=== PATIENT | female | born 1975 | race African-American/Black ===

== ENCOUNTER 2018-02-26 10:21 | Emergency (ER) | payer SELFPAY ==
--- NOTE | 2018-02-26 10:36 | ER Document Report ---
ED Medical Screen (RME) - General Chief Complaint: Vaginal Bleeding Stated Complaint: ABDOMINAL PAIN/VAGINAL BLEEDING Time Seen by Provider: 02/26/18 10:28 Notes: 42 years old female presents today with vagina bleeding since this morning. Change had soaked with blood. She had similar spotting about a week ago. Her last menstrual cycle was the third of this month, prior to this she was having regular menstrual cycle. This bleeding is abdomen therefore present to the ED. She also complained of diffuse lower abdominal discomfort/pain. No family history of early menopause. Her mother had a menopause at 55 so with her aunts. Denies any dizziness denies any fever chills dysuria frequency urgency. She was diagnosed with abnormal Pap smear 3 years ago. TRAVEL OUTSIDE OF THE [place] IN LAST 30 DAYS: No - Related Data Allergies/Adverse Reactions: No Known Allergies Allergy (Verified 09/07/15 08:44) Past Medical History - Past Medical History Cardiac Medical History: Denies: Hx Coronary Artery Disease, Hx Heart Attack, Hx Hypertension Pulmonary Medical History: Reports: Hx Asthma Denies: Hx Bronchitis, Hx COPD, Hx Pneumonia Neurological Medical History: Reports: Hx Migraine. Denies: Hx Cerebrovascular Accident, Hx Seizures Musculoskeltal Medical History: Denies Hx Arthritis Past Surgical History: Reports: Hx Abdominal Surgery - Double hernia repair, Hx Section - x2, Hx Herniorrhaphy, Hx Tonsillectomy. Denies: Hx Hysterectomy - Immunizations Hx Diphtheria, Pertussis, Tetanus Vaccination: Yes
--- NOTE | 2018-02-26 10:47 | ER Document Report ---
ED GI/ - General Chief Complaint: Vaginal Bleeding Stated Complaint: ABDOMINAL PAIN/VAGINAL BLEEDING Time Seen by Provider: 02/26/18 10:28 Mode of Arrival: Ambulatory Information source: Patient Notes: 42-year-old female complaining of suprapubic abdominal pain in midcycle vaginal bleeding. She has been having some bleeding after intercourse for a year. She had an abnormal Pap smear 3 years ago and she was due for recheck this year. She is a history of bacterial vaginosis, tubal ligation, tonsillectomy, 2 C- sections, 2 cervical cerclage is, double inguinal hernia repair. Denies dysuria. No fever or chills. No flank pain. No vaginal discharge with an odor. PCP is [facility]. TRAVEL OUTSIDE OF THE [place] IN LAST 30 DAYS: No - Related Data Allergies/Adverse Reactions: No Known Allergies Allergy (Verified 09/07/15 08:44) Past Medical History - General Information source: Patient Last Menstrual Period: 02/10/18 - Social History Smoking Status: Never Smoker Lives with: Family Family History: Reviewed & Not Pertinent Patient has suicidal ideation: No Patient has homicidal ideation: No Pulmonary Medical History: Reports: Hx Asthma Neurological Medical History: Reports: Hx Migraine Musculoskeletal Medical History: Denies Hx Arthritis Past Surgical History: Reports: Hx Abdominal Surgery - Double hernia repair, Hx Section - x2, Hx Herniorrhaphy, Hx Tonsillectomy, Hx Tubal Ligation. Denies: Hx Hysterectomy - Immunizations Hx Diphtheria, Pertussis, Tetanus Vaccination: Yes Review of Systems - Review of Systems Constitutional: No symptoms reported EENT: No symptoms reported Cardiovascular: No symptoms reported Respiratory: No symptoms reported Gastrointestinal: No symptoms reported Genitourinary: No symptoms reported Female Genitourinary: See HPI Musculoskeletal: No symptoms reported Skin: No symptoms reported Hematologic/Lymphatic: No symptoms reported Neurological/Psychological: No symptoms reported Physical Exam - Vital signs Vitals: Temp Pulse Resp BP Pulse Ox 98.7 F 81 16 105/75 98 02/26/18 10:32 02/26/18 10:32 02/26/18 10:32 02/26/18 10:32 02/26/18 10:32 Interpretation: Normal - General General appearance: Appears well, Alert - HEENT Head: Normocephalic, Atraumatic Eyes: Normal Pupils: PERRL Neck: Supple - Respiratory Respiratory status: No respiratory distress Chest status: Nontender Breath sounds: Normal Chest palpation: Normal - Cardiovascular Rhythm: Regular Heart sounds: Normal auscultation Murmur: No - Abdominal Inspection: Normal Distension: No distension Bowel sounds: Normal Tenderness: Nontender. No: Tender Organomegaly: No organomegaly - Genitourinary External exam: Normal Speculum exam: Cervix closed, Lesions - see other, Other - scant mount old blood , some eyrthema at 8 oclock but not vasculr, also some erythema at 9 oclock not vascular or bleeding.. No: Vaginal discharge Bimanuel exam: No: Cervical motion tender, Adnexal tenderness - Back Back: Normal, Nontender. No: CVA tenderness - Extremities General upper extremity: Normal inspection, Nontender, Normal color, Normal ROM , Normal temperature General lower extremity: Normal inspection, Nontender, Normal color, Normal ROM , Normal temperature, Normal weight bearing. No: Yayo's sign - Neurological Neuro grossly intact: Yes Cognition: Normal Orientation: AAOx4 Delta Coma Scale Eye Opening: Spontaneous Delta Coma Scale Verbal: Oriented Pallavi Coma Scale Motor: Obeys Commands Pallavi Coma Scale Total: 15 Speech: Normal Motor strength normal: LUE, RUE, LLE, RLE Sensory: Normal - Psychological Associated symptoms: Normal affect, Normal mood - Skin Skin Temperature: Warm Skin Moisture: Dry Skin Color: Normal Skin irregularity: negative: Rash Course - Re-evaluation Re-evalutation: 02/26/18 11:48 test is negative, urinalysis is negative, wet prep is negative for BV or Trichomonas, CBC is normal, the gonorrhea and Chlamydia are pending I will have her call me back for those. I also recommended highly that she make an appointment with [facility] for a Pap smear ROSENDO since past abnormal pap smear 3 years ago. 02/26/18 11:50 02/26/18 11:51 - Vital Signs Vital signs: Temp Pulse Resp BP Pulse Ox 98.7 F 81 16 105/75 98 02/26/18 10:32 02/26/18 10:32 02/26/18 10:32 02/26/18 10:32 02/26/18 10:32 - Laboratory Result Diagrams: 02/26/18 10:49 Laboratory results interpreted by me: 02/26/18 10:49 RDW 14.5 H Discharge - Discharge Clinical Impression: midcycle bleeding, Hx of abnormal cervical Pap smear, Pelvic pain Condition: Good Disposition: HOME, SELF-CARE Instructions: [facility] [place], Pelvic Pain ([facility]), Vaginal Bleeding ([facility]), [facility] ([facility]) Additional Instructions: Call [facility] today and for next week for your Pap smear Call me in 3 hours for the gonorrhea and Chlamydia test at [phone] Return to the emergency room for any worsening of the symptoms Copy of the lab were given to you Forms: Return to Work Referrals: NOÉ HUA MD [ACTIVE STAFF] - 03/01/18
[2018-02-26 11:07] LABS: ABSOLUTE EOSINOPHILS # (AUTO) 0.1 10^3/uL (0.0-0.6); ABSOLUTE LYMPHOCYTES (AUTO) 1.4 10^3/uL (0.5-4.7); ABSOLUTE MONOCYTES (AUTO) 0.5 10^3/uL (0.1-1.4); ABSOLUTE NEUT (AUTO) 3.1 10^3/uL (1.7-8.2); BASOPHILS % (AUTO) 0.9 % (0-2); EOSINOPHILS % (AUTO) 1.4 % (0-6); HEMATOCRIT 42.2 % (36.0-47.0); LYMPHOCYTES % (AUTO) 27.3 % (13-45); MEAN CORPUSCULAR HEMOGLOBIN 28.5 pg (27.0-33.4); MEAN CORPUSCULAR HGB CONC 33.2 g/dL (32.0-36.0); MEAN CORPUSCULAR VOLUME 86 fl (80-97); MONOCYTES % (AUTO) 9.1 % (3-13); PLATELET COUNT 184 10^3/uL (150-450); RED BLOOD COUNT 4.92 10^6/uL (3.72-5.28); RED CELL DISTRIBUTION WIDTH 14.5 % (11.5-14.0); SEGMENTED NEUTROPHILS % (AUTO) 61.3 % (42-78); TOTAL CELLS COUNTED % (AUTO) 100 %; WHITE BLOOD COUNT 5.1 10^3/uL (4.0-10.5)
[2018-02-26 11:11] LABS: APPEARANCE,URINE CLEAR; BILIRUBIN,URINE NEGATIVE (NEGATIVE); COLOR,URINE YELLOW; GLUCOSE, URINE NEGATIVE (NEGATIVE); KETONES,URINE NEGATIVE (NEGATIVE); LEUKOCYTE ESTERASE,URINE NEGATIVE (NEGATIVE); NITRITE,URINE NEGATIVE (NEGATIVE); PROTEIN,URINE NEGATIVE (NEGATIVE); UROBILINOGEN,URINE NEGATIVE mg/dL (<2.0)
[2018-02-26 11:42] LABS: BACTERIA (WET MOUNT) 4+ BACTERIA SEEN; RBCS (WET MOUNT) RARE RBCS SEEN; T.VAGINALIS (WET MOUNT) NO TRICHOMONAS SEEN; WBCS (WET MOUNT) 1+ WBCS SEEN; YEAST (WET MOUNT) NO YEAST SEEN
[2018-02-26 12:07] VITALS: BP 123/67
[2018-02-26 13:09] LABS: CHLAM PCR NOT DETECTED (NOT DETECT); GON PCR NOT DETECTED (NOT DETECT)
== END 2018-02-26 12:08 | disposition home or self-care (01) ==
LOC: ER 10:21
DX: N93.9 Abnormal uterine and vaginal bleeding, unspecified (principal); R10.2 Pelvic and perineal pain; J45.909 Unspecified asthma, uncomplicated
CPT/HCPCS: 36415; 81001; 81025; 85025; 87210; 87491; 87591; 99284

== ENCOUNTER 2018-03-04 17:23 | Emergency (ER) | payer SELFPAY ==
[2018-03-04] MEDS ORDERED: NORMAL SALINE 1000 ML 1,000 ML IV ONE (18:11)
[2018-03-04] MEDS ORDERED: KETOROLAC TROMETHAMINE INJ/PF 30 MG/1 ML SDV IV ONE (18:11)
[2018-03-04 18:46] LABS: ABSOLUTE LYMPHOCYTES (AUTO) 0.5 10^3/uL (0.5-4.7); ABSOLUTE MONOCYTES (AUTO) 0.3 10^3/uL (0.1-1.4); ABSOLUTE NEUT (AUTO) 6.7 10^3/uL (1.7-8.2); BASOPHILS % (AUTO) 0.3 % (0-2); EOSINOPHILS % (AUTO) 0.1 % (0-6); HEMOGLOBIN 14.2 g/dL (12.0-15.5); LYMPHOCYTES % (AUTO) 6.8 % (13-45); MEAN CORPUSCULAR HGB CONC 33.8 g/dL (32.0-36.0); MEAN CORPUSCULAR VOLUME 86 fl (80-97); MONOCYTES % (AUTO) 3.5 % (3-13); PLATELET COUNT 187 10^3/uL (150-450); RED BLOOD COUNT 4.91 10^6/uL (3.72-5.28); RED CELL DISTRIBUTION WIDTH 14.2 % (11.5-14.0); SEGMENTED NEUTROPHILS % (AUTO) 89.3 % (42-78); TOTAL CELLS COUNTED % (AUTO) 100 %; WHITE BLOOD COUNT 7.5 10^3/uL (4.0-10.5)
[2018-03-04 19:04] LABS: ALANINE AMINOTRANSFERASE 20 U/L (9-52); ALKALINE PHOSPHATASE 62 U/L (38-126); ANION GAP 14 (5-19); ASPARTATE AMINO TRANSFERASE 21 U/L (14-36); BILIRUBIN,DIRECT 0.2 mg/dL (0.0-0.4); BILIRUBIN,TOTAL 0.5 mg/dL (0.2-1.3); BLOOD UREA NITROGEN 8 mg/dL (7-20); CALCIUM 9.8 mg/dL (8.4-10.2); CARBON DIOXIDE 26 mmol/L (22-30); CHLORIDE 104 mmol/L (98-107); GLUCOSE 117 mg/dL (75-110); LIPASE 68.3 U/L (23-300); POTASSIUM 3.9 mmol/L (3.6-5.0); SODIUM 143.8 mmol/L (137-145); TOTAL PROTEIN 8.2 g/dL (6.3-8.2)
[2018-03-04] MEDS ORDERED: ONDANSETRON HCL INJ/PF 4 MG/2 ML SDV IV ONE (19:26)
[2018-03-04] MEDS ORDERED: MORPHINE SULFATE 10 MG/ML INJ IV ONE (19:26)
--- NOTE | 2018-03-04 19:27 | ER Document Report ---
ED GI/ - General Chief Complaint: Flank Pain Stated Complaint: SIDE PAIN Time Seen by Provider: 03/04/18 18:04 Notes: Patient is a 42-year-old female that comes emergency department for chief complaint of sharp left lower abdominal pain and vomiting. She states she feels nonspecific radiation to the back but the pain is mainly in the left lower abdomen. She states she has vomited 3 times. She denies vaginal bleeding or discharge, had a negative pelvic exam 6 days ago and a Pap smear earlier today, denies fever or chills. Had a normal bowel movement earlier today. Past medical history of hernia repair, , tubal ligation. She is sexually active with her . TRAVEL OUTSIDE OF THE [place] IN LAST 30 DAYS: No - Related Data Allergies/Adverse Reactions: No Known Allergies Allergy (Verified 03/04/18 17:49) Past Medical History - General Information source: Patient - Social History Smoking Status: Never Smoker Frequency of alcohol use: None Drug Abuse: None Lives with: Family Family History: Reviewed & Not Pertinent Patient has suicidal ideation: No Patient has homicidal ideation: No - Past Medical History Cardiac Medical History: Denies: Hx Coronary Artery Disease, Hx Heart Attack, Hx Hypertension Pulmonary Medical History: Reports: Hx Asthma Denies: Hx Bronchitis, Hx COPD, Hx Pneumonia Neurological Medical History: Reports: Hx Migraine. Denies: Hx Cerebrovascular Accident, Hx Seizures Renal/ Medical History: Denies: Hx Peritoneal Dialysis Musculoskeletal Medical History: Denies Hx Arthritis Past Surgical History: Reports: Hx Abdominal Surgery - Double hernia repair, Hx Section - x2, Hx Herniorrhaphy, Hx Tonsillectomy, Hx Tubal Ligation. Denies: Hx Hysterectomy - Immunizations Hx Diphtheria, Pertussis, Tetanus Vaccination: Yes Review of Systems - Review of Systems Constitutional: No symptoms reported EENT: No symptoms reported Cardiovascular: No symptoms reported Respiratory: No symptoms reported Gastrointestinal: See HPI Genitourinary: See HPI Female Genitourinary: No symptoms reported Musculoskeletal: No symptoms reported Skin: No symptoms reported Hematologic/Lymphatic: No symptoms reported Neurological/Psychological: No symptoms reported Physical Exam - Vital signs Vitals: Temp Pulse Resp BP Pulse Ox 97.7 F 70 18 126/67 H 99 03/04/18 17:49 03/04/18 17:49 03/04/18 17:49 03/04/18 17:49 03/04/18 17:49 - Notes Notes: GENERAL: Alert, interacts well. No acute distress. HEAD: Normocephalic, atraumatic. EYES: Pupils equal, round, and reactive to light. Extraocular movements intact. ENT: Oral mucosa moist, tongue midline. Oropharynx unremarkable. Airway patent. Nares patent, no nasal septal hematoma, TM's intact. NECK: Full range of motion. Supple. Trachea midline. LUNGS: Clear to auscultation bilaterally, no wheezes, rales, or rhonchi. No respiratory distress. HEART: Regular rate and rhythm. No murmur ABDOMEN: Left lower quadrant tender with wincing, pain does extend slightly towards the midline and up above this. Upper abdomen completely benign. No distention or rigidity. GENITOURINARY: Deferred EXTREMITIES: Moves all 4 extremities spontaneously. No edema, normal radial and dorsalis pedis pulses bilaterally. No cyanosis. BACK: no cervical, thoracic, lumbar midline tenderness. No saddle anesthesia, normal distal neurovascular exam. NEUROLOGICAL: Alert and oriented x3. Normal speech. [cranial nerves II through XII grossly intact]. PSYCH: Normal affect, normal mood. SKIN: Warm, dry, normal turgor. No rashes or lesions noted. Course - Re-evaluation Re-evalutation: Patient is well-appearing, alert, vital signs unremarkable, she does have tenderness in the left lower quadrant of the abdomen, remaining abdomen is benign. She has had 2 pelvic exams within the past week, denies vaginal discharge, denies fever. No leukocytosis, chemistry unremarkable. Urine does not show infection or hematuria, shows elevated specific gravity and ketones consistent with dehydration. Patient was given IV fluids and symptom management. Patient initially had some dry heaving but she was remedicated, after this she tolerated p.o. without any difficulty. Because of the left lower quadrant pain extending down to the pelvic area after discussion with patient decision was made to perform pelvic ultrasound to rule out abscess or cyst, this was negative. No free fluid. Patient does continue to be tender in the left lower quadrant on palpation although the rest of the abdomen is completely benign. No leukocytosis, patient is nontoxic in appearance. Discussed pros and cons of CAT scan, patient declined. She states she feels that today is the worst but this area has been getting worse for several days now. Discussed options. After discussion decision was made to cover her for potential colitis based on her pain with palpation of the left lower quadrant, patient will be provided with symptom management, follow-up with gastroenterology, and she will return if she worsens. Return precautions discussed. Patient states satisfaction and agreement with plan. - Vital Signs Vital signs: Temp Pulse Resp BP Pulse Ox 98.5 F 73 16 113/66 97 03/04/18 23:00 03/04/18 23:00 03/04/18 23:00 03/04/18 23:00 03/04/18 23:00 - Laboratory Result Diagrams: 03/04/18 18:30 03/04/18 18:30 Laboratory results interpreted by me: 03/04/18 03/04/18 03/04/18 18:30 18:30 21:15 RDW 14.2 H Seg Neutrophils % 89.3 H Lymphocytes % 6.8 L Glucose 117 H Urine Protein 100 H Urine Ketones 20 H Discharge - Discharge Clinical Impression: Left lower quadrant pain Vomiting Qualifiers: Vomiting type: unspecified Vomiting Intractability: non-intractable Nausea presence: with nausea Qualified Code(s): R11.2 - Nausea with vomiting, unspecified Condition: Stable Disposition: HOME, SELF-CARE Additional Instructions: The cause of your abdominal pain and vomiting is not definite, appears to be intestinal based on your workup and recent workup, recommendation is to take nausea medication as prescribed, the Bentyl as prescribed if needed for pain, start with clear liquids and slowly progress. We are also placing you on a short course of Cipro and Flagyl antibiotics because of the location of your pain in your recent symptoms (treating colitis). Follow-up with gastroenterology referral. Return if you worsen including severe abdominal pain, swelling of the abdomen, fever of 100.4 or greater, uncontrolled vomiting, or any other concerning symptoms. Prescriptions: Ciprofloxacin HCl [Cipro 500 mg Tablet] 500 mg PO BID #14 tablet Dicyclomine HCl [Bentyl 20 mg Tablet] 20 mg PO QID PRN #20 tablet PRN Reason: Metoclopramide HCl [Reglan] 5 mg PO ASDIR PRN #30 tablet PRN Reason: Metronidazole [Flagyl 500 mg Tablet] 500 mg PO TID #21 tablet Forms: Return to Work Referrals: VARUN HALL MD [ACTIVE STAFF] - Follow up in 1 week CELSO GARLAND MD [ACTIVE STAFF] - Follow up in 1 week
--- NOTE | 2018-03-04 20:36 | RADIOLOGY REPORT (SQ) ---
EXAM DESCRIPTION: U/S NON OB PEL TV W/DOPPLER COMPLETED DATE/TIME: 03/04/2018 8:26 pm REASON FOR STUDY: sharp left pelvic pain LMP 02/10/2018 COMPARISON: None. TECHNIQUE: Dynamic and static grayscale images acquired of the pelvis via transvaginal approach and recorded on PACS. Additional selected color Doppler and spectral images recorded. LIMITATIONS: None. FINDINGS: UTERUS: Contour normal. No mass. ENDOMETRIAL STRIPE: No focal or generalized thickening. No masses. CERVIX: Normal. RIGHT OVARY AND DOPPLER: Normal size. No worrisome masses. Normal arterial vascular flow without evid ence for torsion. LEFT OVARY AND DOPPLER: Normal size. No worrisome masses. Normal arterial vascular flow without evide nce for torsion. FREE FLUID: None noted. OTHER: No other significant finding. MEASUREMENTS: UTERUS: 12.1 x 6.8 x 5.6 cm. ENDOMETRIAL STRIPE: 10 mm. RIGHT OVARY: 2.7 x 1.2 x 2 cm. LEFT OVARY: 2.2 x 1.4 x 1.5 cm. IMPRESSION: NORMAL TRANSVAGINAL PELVIC ULTRASOUND. TECHNICAL DOCUMENTATION: JOB ID: [id number]- All Rights Reserved Rev-09/25 Reading location - IP/workstation name: [email or web address]
[2018-03-04] MEDS ORDERED: OXYCODONE-ACETAMINOPHEN 5-325 MG TABLET PO ONE (21:14)
[2018-03-04 21:38] LABS: APPEARANCE,URINE SLIGHTLY-CLOUDY; BILIRUBIN,URINE NEGATIVE (NEGATIVE); COLOR,URINE YELLOW; GLUCOSE, URINE NEGATIVE (NEGATIVE); KETONES,URINE 20 mg/dL (NEGATIVE); LEUKOCYTE ESTERASE,URINE NEGATIVE (NEGATIVE); NITRITE,URINE NEGATIVE (NEGATIVE); PROTEIN,URINE 100 mg/dL (NEGATIVE); URINE SPECIFIC GRAVITY 1.028; UROBILINOGEN,URINE NEGATIVE mg/dL (<2.0)
[2018-03-04] MEDS ORDERED: DIPHENHYDRAMINE HCL 50 MG/ML VIAL IV ONE (21:55)
[2018-03-04] MEDS ORDERED: METOCLOPRAMIDE HCL INJ/PF 10 MG/2 ML SDV IV ONE (21:55)
[2018-03-04] MEDS ORDERED: FAMOTIDINE 20 MG TABLET PO ONE (22:30)
[2018-03-04] MEDS ORDERED: HYDROCODONE/ACETAMINOPHEN 5-325 MG (6 TAB/ER DISP) PO PRN (22:56)
[2018-03-04] MEDS ORDERED: ONDANSETRON ODT 4 MG TAB (6 TAB/ER DISP) PO PRN (22:56)
[2018-03-04 23:00] VITALS: BP 113/66
== END 2018-03-04 23:20 | disposition home or self-care (01) ==
LOC: ER 17:23
DX: R10.32 Left lower quadrant pain (principal); Z98.51 Tubal ligation status
CPT/HCPCS: 99284; 96361; 96374; 96375; 36415; 83690; 84703; 85025; 80053; 81001; 76830; 93976; J1200; J1885; J2765; J2270; J2405; J7030